=== PATIENT | male | born 1945 | race Caucasian/White ===

== ENCOUNTER 2017-07-28 07:47 | Outpatient (CLI) | payer OTHER ==
[~2017-07-28 07:47] MED LIST: NABUMETONE500 MG PO; PERCOCET 5/321 UDTAB PO
== END 2017-07-28 07:55 | disposition home or self-care (01) ==
LOC: NUCLEAR 07:47
DX: C18.9 Malignant neoplasm of colon, unspecified (principal)
CPT/HCPCS: 78815; A9552

== ENCOUNTER → 2018-07-15 | Outpatient (CLI) | payer OTHER | END | disposition home or self-care (01) | LOC: NUCLEAR 07-14 09:00 | DX: C18.0 Malignant neoplasm of cecum (principal); Z08 Encounter for follow-up examination after completed treatment for malignant neoplasm | CPT/HCPCS: 78815; A9552 ==